=== PATIENT | male | born 1995 | race Caucasian/White ===

== ENCOUNTER 2016-06-20 21:11 | Emergency (ER) | payer OTHER ==
[2016-06-20 21:25] VITALS: BP 152/75
--- NOTE | 2016-06-20 21:35 | UC ---
Respiratory Complaint HPI - HPI Summary HPI Summary: The patient comes in today for: 1. Tightness of his chest with wheezing. Onset: 3.5 hours ago. Palliative/provocative: Cold air makes it better. Hot black coffee (caffeine) helps. Inhalers helps. Quality: Tightness. Region: Chest Severity: 4/10 Time: Comes and goes. Associated symptoms: FEvers: None. Dyspnea: "a little bit." Cough: Non-productive. Previous disease: "I've had this since I was a baby." Previous treatment: Ventolin helps, but the Proair does not help. He has been prescribed Flovent, but he has not used it as he has not had the money for it. When offered a DuoNeb treatment, he stated that he wanted to do this tonight. * - History of Current Complaint Chief Complaint: UCRespiratory Stated Complaint: ASTHMA Time Seen by Provider: 06/20/16 21:20 Hx Obtained From: Patient - Allergies/Home Medications Allergies/Adverse Reactions: Allergies Allergy/AdvReac Type Severity Reaction Status Date / Time environmental Allergy Difficulty Uncoded 06/20/16 21:25 Breathing PMH/Surg Hx/FS Hx/Imm Hx Endocrine History Of: Denies: Diabetes, Thyroid Disease, Hyperthyroidism, Hypothyroidism, Dyslipidemia Cardiovascular History Of: Denies: Cardiac Disorders, Hypertension, Pacemaker/ICD, Myocardial Infarction , Congestive Heart Failure, Atrial Fibrillation, Deep Vein Thrombosis, Bleeding Disorders Respiratory History Of: Reports: Asthma Denies: COPD, Bronchitis, Pneumonia, Pulmonary Embolism GI/ History Of: Denies: Gastroesophageal Reflux, Ulcer, Gastrointestinal Bleed, Gall Bladder Disease, Kidney Stones, Diverticulitis, Renal Disease, Urosepsis Neurological History Of: Denies: TIA, CVA, Dementia, Seizures, Migraine Psychological History Of: Denies: Anxiety, Depression, Bipolar Disorder, Schizophrenia, Post Traumatic Stress Disorder Cancer History Of: Denies: Lung Cancer, Colorectal Cancer, Breast Cancer, Prostate Cancer, Cervical Cancer Other History Of: Negative For: HIV, Hepatitis B, Hepatitis C - Surgical History Surgical History: Yes Surgery Procedure, Year, and Place: TOOTH EXTRACTION; ear tubes - Family History Known Family History: Positive: Respiratory Disease - Asthma. Negative: Cardiac Disease, Hypertension, Blood Disorder Family History: no known cardiac, pulmonary, disease. - Social History Occupation: Employed Full-time Alcohol Use: Occasionally Alcohol Amount: DRINKS A 12-PACK AT A TIME WEEKLY Substance Use Type: None Smoking Status (MU): Never Smoked Tobacco Type: Smokeless Tobacco Amount Used/How Often: 1/2 CAN day When Did the Patient Quit Smoking/Using Tobacco: 2014 Household Exposure Type: Cigarettes - Immunization History Most Recent Tetanus Shot: 3 YEARS AGO Review of Systems Constitutional: Negative Skin: Negative Eyes: Negative ENT: Negative Respiratory: Shortness Of Breath, Cough Cardiovascular: Negative Gastrointestinal: Negative Genitourinary: Negative All Other Systems Reviewed And Are Negative: Yes Physical Exam Triage Information Reviewed: Yes Appearance: Well-Appearing, No Pain Distress, Well-Nourished Vital Signs: Initial Vital Signs Temp 98.1 F 06/20/16 21:20 Pulse 105 06/20/16 21:20 Resp 16 06/20/16 21:20 BP 152/75 06/20/16 21:20 Pulse Ox 98 06/20/16 21:20 Vital Signs Reviewed: Yes Eyes: Positive: Conjunctiva Clear. Negative: Discharge ENT: Positive: Hearing grossly normal. Negative: Pharyngeal erythema, Nasal congestion, Nasal drainage, TM bulging, TM dull, TM red, Tonsillar swelling, Tonsillar exudate Dental: Negative: Gross Decay/Caries @, Dental Fracture @ Neck: Positive: Supple, Nontender, No Lymphadenopathy. Negative: Nuchal Rigidity Respiratory: Positive: Chest non-tender, Lungs clear, No respiratory distress, No accessory muscle use, Other: - Slight decreased in inspiration/expiration cycle?. Negative: Crackles, Wheezing Cardiovascular: Positive: RRR, No Murmur Abdomen Description: Positive: Nontender, No Organomegaly, Soft. Negative: Distended, Guarding Musculoskeletal: Positive: Strength Intact, ROM Intact Neurological: Positive: Alert, Muscle Tone Normal Psychological: Positive: Age Appropriate Behavior, Consolable Skin: Negative: rashes, breakdown UC Diagnostic Evaluation - Laboratory O2 Sat by Pulse Oximetry: 98 Respiratory Course/Dx - Course Course Of Treatment: Patient was given a DuoNeb aerosol treatment. He states that the nebulizer is helping him. - Differential Dx/Diagnosis Provider Diagnoses: asthma. Discharge - Discharge Plan Condition: Stable Disposition: HOME Patient Education Materials: Asthma (ED) Referrals: No Primary Care Phys,NOPCP [Primary Care Provider] - 3 Days (Please see your primary care provider this coming week to see how well you are doing. If you don't have a primary care provider, please contact the physician referral service. If you can't get in timely, please you may come back to see us until you can. If you get worse, please be seen sooner by us or the ER.) [facility] [place] [facility] [Outside]
[2016-06-20] MEDS ORDERED: Ipratropium 0.5MG/2.5ML NEB* 0.5 MG/2.5 ML NEB.SOLN INH ONE (21:38)
[2016-06-20] MEDS ORDERED: Albuterol 2.5 MG/3 ML NEB.SOL* (0.083%) INH ONE (21:38)
[2016-06-20] MEDS ORDERED: Albuterol HFA INHALER* 8 gm MDI INH ONE (21:56)
== END 2016-06-20 22:00 | disposition home or self-care (01) ==
LOC: UCEAST 21:11
DX: J45.909 Unspecified asthma, uncomplicated (principal); F17.220 Nicotine dependence, chewing tobacco, uncomplicated
CPT/HCPCS: 94640; 99212; A9270-GY; G0463; J7644

== ENCOUNTER 2016-08-08 15:54 | Emergency (ER) | payer SELFPAY ==
[2016-08-08 16:17] VITALS: BP 142/77
[2016-08-08] MEDS ORDERED: Ketorolac INJ* 60 MG/2 ML VIAL IM ONE (17:16)
[2016-08-08] MEDS ORDERED: HYDROcodone/ACETAMIN 5-325 MG* 1 TAB PO ONE (17:16)
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
== END 2016-08-08 19:24 | disposition home or self-care (01) ==
LOC: ED 15:54
DX: S20.219A Contusion of unspecified front wall of thorax, initial encounter (principal); S16.1XXA Strain of muscle, fascia and tendon at neck level, initial encounter; V49.49XA Driver injured in collision with other motor vehicles in traffic accident, initial encounter; Y92.9 Unspecified place or not applicable
CPT/HCPCS: 71020; 72125; 96372; 99281; J1885

== ENCOUNTER 2017-06-15 13:32 | Emergency (ER) | payer SELFPAY ==
[2017-06-15 14:53] LABS: ABS Basophils 0 10^3/ul (0-0.2); ABS Eosinophils 0.1 10^3/ul (0-0.6); ABS Lymphocytes 2.1 10^3/ul (1.0-4.8); ABS Monocytes 1.1 10^3/ul (0-0.8); ABS Neutrophils 8.4 10^3/ul (1.5-7.7); ABS Nucleated RBC 0 10^3/ul; Eosinophil % 0.7 % (0-6); Hematocrit 45 % (42-52); Hemoglobin 15.8 g/dl (14.0-18.0); Mean Corpuscular HGB Conc 36 g/dl (31-36); Mean Corpuscular Hemoglobin 30 pg (27-31); Mean Corpuscular Volume 85 fL (80-94); Mean Platelet Volume 8 um3 (7.4-10.4); Nucleated Red Blood Cells % 0; Platelet Count 257 10^3/ul (150-450); Red Blood Count 5.25 10^6/ul (4.0-5.4); Red Cell Distribution Width 13 % (10.5-15); White Blood Count 11.8 10^3/ul (3.5-10.8)
[2017-06-15 15:06] LABS: EGFR Non-African American 116.4 (>60)
[2017-06-15] MEDS ORDERED: Ondansetron INJ* 2 MG/ML VIAL IV ONE (16:28)
[2017-06-15] MEDS ORDERED: Morphine INJ* 4 MG/ML 1 ML CARPUJECT IV ONE (16:28)
[2017-06-15] MEDS ORDERED: NS 0.9% 1000 ML* 1,000 ML BOLUS SCH (16:30)
[2017-06-15 17:58] LABS: Urine Appearance Clear; Urine Blood Negative (Negative); Urine Color Yellow; Urine Ketones 1+ (Negative); Urine Protein Negative (Negative); Urine Urobilinogen Negative (Negative)
[2017-06-15] MEDS ORDERED: Iohexol 300* (CONTRAST) 10 ML SDV IV ONE (18:25)
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
--- NOTE | 2017-06-15 19:04 | RAD ---
INDICATION: Right lower quadrant abdominal pain. COMPARISON: There are no prior studies available for comparison. TECHNIQUE: A CT scan of the abdomen and pelvis was performed with intravenous and oral contrast following intravenous injection of 127 ml of Omnipaque 300 nonionic contrast. Contiguous axial sections were obtained from the lung bases through the symphysis pubis. Images were reconstructed in the coronal and sagittal planes. FINDINGS: The lung bases are clear. No pleural effusion is present. The liver is normal in size without significant focal abnormality. The liver is decreased in attenuation consistent with fatty infiltration. No calcified gallstones are seen. The spleen is mildly enlarged without focal abnormality. The pancreas appears to be within normal limits. The kidneys and adrenal glands are normal in size. No hydronephrosis is seen. No significant focal renal abnormality is seen. The aorta is normal in caliber and demonstrates homogeneous contrast opacification. No significant enlarged retroperitoneal lymph nodes are seen. There is circumferential thickening of the wall of the antrum of the stomach. The body and fundus of the stomach appeared within normal limits. This is a nonspecific finding likely secondary to gastritis less likely a mass. The small bowel colon appear nondistended. The appendix appears to be within normal limits. There is no evidence for colitis. No free intraperitoneal air or fluid is seen. No significant focal osseous abnormality is seen. IMPRESSION: 1. CIRCUMFERENTIAL THICKENING OF THE WALL OF THE ANTRUM OF THE STOMACH. THIS IS A NONSPECIFIC FINDING SUGGESTIVE OF GASTRITIS LESS LIKELY A MASS. 2. MILD SPLENOMEGALY. 3. HEPATIC STEATOSIS.
--- NOTE | 2017-06-15 19:25 | ED ---
I, Riley Saldaña, scribed for Channing Le MD on 06/15/17 at 1921 . Progress - Progress Note Progress Note: CT Abd/Pel reveals, per radiologist, IMPRESSION: 1. CIRCUMFERENTIAL THICKENING OF THE WALL OF THE ANTRUM OF THE STOMACH. THIS IS A NONSPECIFIC FINDING SUGGESTIVE OF GASTRITIS LESS LIKELY A MASS. 2. MILD SPLENOMEGALY. 3. HEPATIC STEATOSIS. ED physician has reviewed this radiology report. Re-Evaluation - Re-Evaluation First Eval Re-Evaluation Time: 19:16 Comment: Patient states pain is "iffy." There has been no vomiting or nausea, but he has had diarrhea. Patient states the pain originated near the chest, but has migrated to RLQ abdomen and has stayed there. Course/Dx - Course Course Of Treatment: Pt medications reviewed this visit. High blood pressure noted. In the ED course, the pt was given IV fluids, morphine, and zofran. Pt will be signed out to Dr. Le, pending disposition, awaiting CT abdomen/ pelvis. I reviewed the CAT scan results with patient and his family. Patient states that his pain is intermittent, and "so/so". Exam-ahn, he has a benign exam. Patient will be diagnosed with non-specific abdominal pain and dicharged home with pain medication and anti-nausea medication. The patient is agreeable with this plan. - Diagnoses Provider Diagnoses: Elevated BP without diagnosis of hypertension, Nonspecific abdominal pain The documentation as recorded by the Piotr lindquist Tecjoon accurately reflects the service I personally performed and the decisions made by me, Channing Le MD.
[2017-06-15 20:07] VITALS: BP 137/64
== END 2017-06-15 20:06 ==
LOC: ED 13:32
DX: R03.0 Elevated blood-pressure reading, without diagnosis of hypertension (principal); R10.9 Unspecified abdominal pain
CPT/HCPCS: 36415; 74177; 80053; 81003; 83605; 83690; 85025; 85652; 86140; 96374; 96375; 99282; J2270; J2405; Q9967

== ENCOUNTER 2017-07-29 20:47 | Emergency (ER) | payer SELFPAY ==
[2017-07-29 21:19] VITALS: BP 129/80
[2017-07-29] MEDS ORDERED: Ketorolac INJ* 60 MG/2 ML VIAL IM ONE (23:03)
[2017-07-29] MEDS ORDERED: Cyclobenzaprine TAB* 10 MG PO ONE (23:04)
--- NOTE | 2017-07-29 23:14 | UC ---
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 Pain is in midback and radiates up B/L up to scapular region. Denies previous injury to the back - History of Current Complaint Chief Complaint: UCBackPain Stated Complaint: BACK PAIN WC Time Seen by Provider: 07/29/17 22:37 Hx Obtained From: Patient Onset/Duration: Sudden Onset, Lasting Days Severity Initially: Severe Pain Intensity: 8 Character: Sharp, Spasmodic, Stiffness Aggravating Factor(s): Movement, Lifting, Bending, Walking Alleviating Factor(s): Nothing - Allergies/Home Medications Allergies/Adverse Reactions: Allergies Allergy/AdvReac Type Severity Reaction Status Date / Time environmental Allergy Difficulty Uncoded 07/29/17 21:20 Breathing PMH/Surg Hx/FS Hx/Imm Hx - Additional Past Medical History Additional PMH: none Other History Of: Negative For: HIV, Hepatitis B, Hepatitis C - Surgical History Surgical History: Yes Surgery Procedure, Year, and Place: TOOTH EXTRACTION; ear tubes - Family History Known Family History: Positive: Respiratory Disease - Asthma. Negative: Cardiac Disease, Hypertension, Blood Disorder Family History: no known cardiac, pulmonary, disease. - Social History Alcohol Use: Occasionally Alcohol Amount: DRINKS A 12-PACK AT A TIME WEEKLY Substance Use Type: None Smoking Status (MU): Current Every Day Smoker Type: Smokeless Tobacco Amount Used/How Often: 1/2 CAN day When Did the Patient Quit Smoking/Using Tobacco: 2014 Household Exposure Type: Cigarettes - Immunization History Most Recent Tetanus Shot: 3 YEARS AGO Review of Systems Constitutional: Negative Skin: Negative Eyes: Negative ENT: Negative Respiratory: Negative Cardiovascular: Negative Gastrointestinal: Negative Genitourinary: Negative Motor: Negative Neurovascular: Negative Musculoskeletal: Decreased ROM, Other: - SEE HPI Neurological: Negative Psychological: Negative All Other Systems Reviewed And Are Negative: Yes Physical Exam Triage Information Reviewed: Yes Appearance: Pain Distress Vital Signs: Initial Vital Signs Temp 37.2 C 07/29/17 21:17 Pulse 87 07/29/17 21:17 Resp 18 07/29/17 21:17 BP 129/80 07/29/17 21:17 Pulse Ox 98 07/29/17 21:17 Vital Signs Reviewed: Yes Eye Exam: Normal ENT Exam: Normal Dental Exam: Normal Neck exam: Normal Neck: Positive: 1 Respiratory Exam: Normal Cardiovascular Exam: Normal Abdominal Exam: Normal Musculoskeletal: Positive: Strength Limited @, ROM Limited @, Other: - TTP over thoracic paraspinal muscles with mild trigger points over the mid back region, NO vertebral tenderness noted Neurological Exam: Normal Psychological Exam: Normal Skin Exam: Normal Back Pain Course/Dx - Course Course Of Treatment: Pharmacy closed, Flexeril 10mg po x 1 now and Toradol 60mg IM x1 in UC. 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
== END 2017-07-29 23:25 | disposition home or self-care (01) ==
LOC: UCEAST 20:47
DX: M62.830 Muscle spasm of back (principal); F17.220 Nicotine dependence, chewing tobacco, uncomplicated
CPT/HCPCS: 99212; A9270-GY; G0463; J1885

== ENCOUNTER 2019-05-19 07:38 | Emergency (ER) | payer SELFPAY ==
[2019-05-19] MEDS ORDERED: Sulfamethox/Trimethoprim DS 800/160* TAB PO ONE (08:06)
--- NOTE | 2019-05-19 08:06 | ED ---
Skin Complaint - HPI Summary HPI Summary: The pt is a 23 yr old male presenting to [facility] c/o abscess on his left buttock beginning 2 days [employer]. He states that he attempted to pop the abscess with his thumbs 2 days ago and the next day it was much more red and painful. He notes that clear fluid was produced from the abscess when squeezed. He rates his current pain severity due to the abscess an 8/10. No aggravating or alleviating factors noted. He also denies any fever. - History of Current Complaint Chief Complaint: EDRashSkinAbscess Stated Complaint: ABCESS Hx Obtained From: Patient Onset/Duration: Started Days Ago, Still Present Skin Exposure Onset/Duration: Days Ago Timing: Constant, Lasting Days - 2 Onset Severity: Severe Current Severity: Severe Pain Intensity: 8 Skin Location: Other: - left buttocks Character: Painful Aggravating Symptom(s): Nothing Alleviating Symptom(s): Nothing Associated Signs & Symptoms: Negative - fever, Rash - Allergy/Home Medications Allergies/Adverse Reactions: Allergies Allergy/AdvReac Type Severity Reaction Status Date / Time environmental Allergy Difficulty Uncoded 05/19/19 07:47 Breathing PMH/Surg Hx/FS Hx/Imm Hx Endocrine/Hematology History: Denies: Hx Diabetes, Hx Thyroid Disease Cardiovascular History: Denies: Hx Congestive Heart Failure, Hx Deep Vein Thrombosis, Hx Hypertension , Hx Myocardial Infarction, Hx Pacemaker/ICD Respiratory History: Reports: Hx Asthma Denies: Hx Chronic Obstructive Pulmonary Disease (COPD), Hx Lung Cancer, Hx Pneumonia, Hx Pulmonary Embolism GI History: Denies: Hx Gall Bladder Disease, Hx Gastrointestinal Bleed, Hx Ulcer, Hx Urosepsis History: Denies: Hx Kidney Stones, Hx Renal Disease Neurological History: Denies: Hx Dementia, Hx Migraine, Hx Seizures, Hx Transient Ischemic Attacks (TIA) Psychiatric History: Denies: Hx Anxiety, Hx Depression, Hx Schizophrenia, Hx Bipolar Disorder - Surgical History Surgery Procedure, Year, and Place: TOOTH EXTRACTION; ear tubes Infectious Disease History: No Infectious Disease History: Denies: Hx Hepatitis, Hx Human Immunodeficiency Virus (HIV), History Other Infectious Disease, Traveled Outside the [place] in Last 30 Days - Family History Known Family History: Positive: Respiratory Disease - Asthma. Negative: Cardiac Disease, Hypertension, Blood Disorder Family History: no known cardiac, pulmonary, disease. - Social History Alcohol Use: Occasionally Alcohol Amount: DRINKS A 12-PACK AT A TIME WEEKLY Substance Use Type: Reports: None Smoking Status (MU): Current Every Day Smoker Type: Smokeless Tobacco Amount Used/How Often: 1/2 CAN day Review of Systems Negative: Fever Positive: Rash All Other Systems Reviewed And Are Negative: Yes Physical Exam - Summary Physical Exam Summary: Constitutional: Well-developed, Well-nourished, Alert. (-) Distressed Skin: Warm, Dry Left Buttock: Region of erythema approximately 5 to 6 cm in diameter, indurated , tender to palpation, no fluctuance, no discharge. HENT: Normocephalic; Atraumatic Eyes: Conjunctiva normal Neck: Musculoskeletal ROM normal neck. (-) JVD, (-) Stridor, (-) Tracheal deviation Cardio: Rhythm regular, rate normal, Heart sounds normal; Intact distal pulses; The pedal pulses are 2+ and symmetric. Radial pulses are 2+ and symmetric. (-) Murmur Pulmonary/Chest wall: Effort normal. (-) Respiratory distress, (-) Wheezes, (-) Rales Abd: Soft, (-) tenderness, (-) Distension, (-) Guarding, (-) Rebound Musculoskeletal: (-) Edema Lymph: (-) Cervical adenopathy Neuro: Alert, Oriented x3 Psych: Mood and affect Normal Triage Information Reviewed: Yes Vital Signs On Initial Exam: Initial Vitals Temp Pulse Resp BP Pulse Ox 99.2 F 118 16 152/84 98 05/19/19 07:42 05/19/19 07:42 05/19/19 07:42 05/19/19 07:42 05/19/19 07:42 Vital Signs Reviewed: Yes Procedures - Sedation Patient Received Moderate/Deep Sedation with Procedure: No Diagnostics - Vital Signs Vital Signs Temp Pulse Resp BP Pulse Ox 05/19/19 07:42 99.2 F 118 16 152/84 98 - Laboratory Lab Statement: Any lab studies that have been ordered have been reviewed, and results considered in the medical decision making process. Course/Dx - Course Course Of Treatment: The pt is a 23 yr old male presenting to [facility] c/o abscess on his left buttock beginning 2 days [employer]. He states that he attempted to pop the abscess with his thumbs 2 days ago and the next day it was much more red and painful. No imaging or test results to report. Final Dx are Abscess and cellulitis. Pt will be prescribed Bactrim and discharged home with PCP follow up within 3 days. Pt is agreeable with this plan. - Diagnoses Provider Diagnoses: Abscess, Cellulitis Discharge ED - Sign-Out/Discharge Documenting (check all that apply): Patient Departure - discharge - Discharge Plan Condition: Stable Disposition: HOME Prescriptions: Sulfamethox/Trimethoprim DS* [Bactrim DS 800/160 TAB*] 1 tab PO BID 7 Days #14 tab Patient Education Materials: Cellulitis (ED), Abscess (ED) Forms: *Work Release Referrals: [facility] [Outside] - 3 Days Additional Instructions: Please follow up with [facility] for a referral to a primary care physician. Please follow up with your primary care physician within 3-4 days. Please return to the ED for any new or worsening symptoms. - Billing Disposition and Condition Condition: STABLE Disposition: Home - Attestation Statements Document Initiated by Shreya: Yes Documenting Scribe: Lukas Mejia Provider For Whom Mendeze is Documenting (Include Credential): Alireza Myers DO Scribe Attestation: Lukas Cage, scribed for Alireza Myers DO on 05/19/19 at 1319. Scribe Documentation Reviewed: Yes Provider Attestation: The documentation as recorded by the Lukas lindquist accurately reflects the service I personally performed and the decisions made by Alireza cosby DO Status of Scrjoaquín Document: Viewed
[2019-05-19 08:25] VITALS: BP 139/75
== END 2019-05-19 08:20 | disposition home or self-care (01) ==
LOC: ED 07:38
DX: L02.31 Cutaneous abscess of buttock (principal); L03.317 Cellulitis of buttock; J45.909 Unspecified asthma, uncomplicated; F17.290 Nicotine dependence, other tobacco product, uncomplicated
CPT/HCPCS: 99282; A9270-GY

== ENCOUNTER 2019-08-10 07:19 | Emergency (ER) | payer SELFPAY ==
[2019-08-10 07:30] VITALS: BP 135/72
[2019-08-10 07:45] LABS: Influenza B Molecular POSITIVE (Negative)
[2019-08-10] MEDS ORDERED: Albuterol HFA INHALER* 8 gm MDI INH ONE (07:52)
--- NOTE | 2019-08-10 07:53 | UC ---
Respiratory Complaint HPI - HPI Summary HPI Summary: The patient is a 23-year-old male with a history of asthma who presents with a five-day history of fever, chills, cough, congestion ,myalgias, and wheezing. He has no nausea vomiting or diarrhea. - History of Current Complaint Chief Complaint: UCRespiratory Stated Complaint: FLU SYMPTOMS Time Seen by Provider: 08/10/19 07:33 Hx Obtained From: Patient Onset/Duration: Gradual Onset, Lasting Days Timing: Constant Severity Initially: Mild Severity Currently: Moderate Pain Intensity: 7 Pain Scale Used: 0-10 Numeric Character: Cough: Nonproductive Aggravating Factors: Nothing Alleviating Factors: Bronchodilator Associated Signs And Symptoms: Positive: Wheezing, Nasal Congestion, Hoarseness - Allergies/Home Medications Allergies/Adverse Reactions: Allergies Allergy/AdvReac Type Severity Reaction Status Date / Time environmental Allergy Difficulty Uncoded 08/10/19 07:30 Breathing Home Medications: Home Medications Cetirizine* [ZyrTEC 10 MG TAB*] 10 mg PO DAILY 10/10/12 [History Confirmed 08/10] Albuterol HFA INHALER* [Ventolin HFA Inhaler*] 2 puff INH Q4H PRN #1 mdi [Rx Confirmed 08/10/19] Albuterol 2.5MG/3ML (0.083%)* [Ventolin 2.5 MG/3 ML NEB.SOLEDAD*] 2.5 mg INH QID PRN #1 neb.soledad 08/10/19 [Rx] predniSONE 20 mg TAB [Deltasone 20 MG TAB*] 40 mg PO DAILY #8 tab 08/10/19 [Rx] PMH/Surg Hx/FS Hx/Imm Hx Previously Healthy: Yes Respiratory History: Asthma Other History Of: Negative For: HIV, Hepatitis B, Hepatitis C - Surgical History Surgical History: Yes Surgery Procedure, Year, and Place: TOOTH EXTRACTION; ear tubes - Family History Known Family History: Positive: Respiratory Disease - Asthma. Negative: Cardiac Disease, Hypertension, Blood Disorder Family History: no known cardiac, pulmonary, disease. - Social History Alcohol Use: Occasionally Alcohol Amount: DRINKS A 12-PACK AT A TIME WEEKLY Substance Use Type: None Substance Use Comment - Amount & Last Used: daily Smoking Status (MU): Light Every Day Tobacco Smoker Type: Cigarettes Amount Used/How Often: 5 sig /day When Did the Patient Quit Smoking/Using Tobacco: 2014 Household Exposure Type: Cigarettes - Immunization History Most Recent Tetanus Shot: 3 YEARS AGO Review of Systems All Other Systems Reviewed And Are Negative: Yes Constitutional: Positive: Fever, Chills, Fatigue Skin: Positive: Negative Eyes: Positive: Negative ENT: Positive: Nasal Discharge, Sinus Congestion, Sinus Pain/Tenderness Respiratory: Positive: Cough Cardiovascular: Positive: Negative Genitourinary: Positive: Negative Motor: Positive: Negative Neurovascular: Positive: Negative Musculoskeletal: Positive: Negative Neurological/Mental Status: Positive: Negative Psychological: Positive: Negative Physical Exam Triage Information Reviewed: Yes Appearance: Well-Appearing, No Pain Distress, Well-Nourished Vital Signs: Initial Vital Signs Temp 98.5 F 08/10/19 07:25 Pulse 100 08/10/19 07:25 Resp 16 08/10/19 07:25 BP 135/72 08/10/19 07:25 Pulse Ox 95 08/10/19 07:25 Vital Signs Reviewed: Yes Eyes: Positive: Conjunctiva Clear ENT: Positive: Hearing grossly normal. Negative: Pharyngeal erythema, Nasal congestion, Nasal drainage, Trismus, Muffled voice, Dental tenderness Neck: Positive: Supple, Nontender, No Lymphadenopathy Respiratory: Positive: Wheezing. Negative: No respiratory distress, No accessory muscle use Cardiovascular: Positive: RRR, No Murmur Musculoskeletal: Positive: ROM Intact, No Edema Neurological: Positive: Alert Psychological Exam: Normal Skin Exam: Normal Diagnostics - Laboratory Lab Results: influ B + Respiratory Course/Dx - Differential Dx/Diagnosis Provider Diagnosis: Influenza B, Bronchospasm Discharge ED - Sign-Out/Discharge Documenting (check all that apply): Patient Departure All imaging exams completed and their final reports reviewed: No Studies - Discharge Plan Condition: Stable Disposition: HOME Patient Education Materials: Bronchospasm (ED), Influenza (DC) Referrals: No Primary Care Phys,NOPCP [Primary Care Provider] - - Billing Disposition and Condition Condition: STABLE Disposition: Home
== END 2019-08-10 08:11 | disposition home or self-care (01) ==
LOC: UCEAST 07:19
DX: J45.909 Unspecified asthma, uncomplicated (principal); J10.1 Influenza due to other identified influenza virus with other respiratory manifestations; F17.210 Nicotine dependence, cigarettes, uncomplicated; Z91.09 Other allergy status, other than to drugs and biological substances
CPT/HCPCS: 99213; A9270-GY; G0463; J7512

== ENCOUNTER 2019-08-13 07:33 | Emergency (ER) | payer SELFPAY ==
--- NOTE | 2019-08-13 08:09 | UC ---
Respiratory Complaint HPI - HPI Summary HPI Summary: 23 yo male presents, accompanied by mother, with SOB. He tells me that he was here on 08/10 and diagnosed with the flu (his flu symptoms started 08/05). He has a history of poorly controlled asthma and was given an albuterol inhaler and 40mg prednisone to take daily. He also has an albuterol nebulizer at home that he has been using. He states his baseline is using his albuterol neb once a day , but over the past 3 days has needed it q4-6hours and he continues to feel SOB. Last neb treatment was this am at 0630. He has been taking tylenol alternating with ibuprofen for his body aches with good relief and has not had a fever since last week. He continues to smoke daily, but not over the last 2 days due to SOB. He denies sinus symptoms, sore throat, chest pain, abdominal pain, n/v. He was on advair in the past, but stopped this on his own a few years ago as he wanted to join the . He does not have a PCP or any follow up care. He has been hospitalized once at age 2 for his asthma - but has been to the ED/UCs many times for asthma exacerbations. - History of Current Complaint Chief Complaint: UCRespiratory Stated Complaint: SHORT OF BREATH, COUGH Time Seen by Provider: 08/13/19 07:54 Hx Obtained From: Patient, Family/Wrist Closer Onset/Duration: Gradual Onset Severity Initially: Moderate Severity Currently: Moderate Pain Intensity: 8 Pain Scale Used: 0-10 Numeric - Allergies/Home Medications Allergies/Adverse Reactions: Allergies Allergy/AdvReac Type Severity Reaction Status Date / Time environmental Allergy Difficulty Uncoded 08/13/19 07:48 Breathing Home Medications: Home Medications Cetirizine* [ZyrTEC 10 MG TAB*] 10 mg PO DAILY 10/10/12 [History Confirmed 08/13] Albuterol HFA INHALER* [Ventolin HFA Inhaler*] 2 puff INH Q4H PRN #1 mdi [Rx Confirmed 08/13/19] Albuterol 2.5MG/3ML (0.083%)* [Ventolin 2.5 MG/3 ML NEB.SOLEDAD*] 2.5 mg INH QID PRN #1 neb.soledad 08/10/19 [Rx Confirmed 08/13/19] predniSONE 20 mg TAB [Deltasone 20 MG TAB*] 40 mg PO DAILY #8 tab 08/10/19 [Rx Confirmed 08/13/19] Albuterol HFA INHALER* [Ventolin HFA Inhaler*] 1 - 2 puff INH Q4H PRN #1 mdi [Rx] Amoxicillin/Clavulanate TAB* [Augmentin TAB 875*] 2 tab PO BID 7 Days #28 tab [Rx] Azithromycin TAB* [Zithromax TAB (Z-DAYTON) 250 mg #6 tabs] 2 tab PO .TODAY, THEN 1 DAILY #1 [place] 08/13/19 [Rx] predniSONE 50 mg TAB [Deltasone 50 mg TAB] 50 mg PO DAILY #2 tab 08/13/19 [Rx] PMH/Surg Hx/FS Hx/Imm Hx Respiratory History: Asthma Other History Of: Negative For: HIV, Hepatitis B, Hepatitis C - Surgical History Surgical History: Yes Surgery Procedure, Year, and Place: TOOTH EXTRACTION; ear tubes - Family History Known Family History: Positive: Respiratory Disease - Asthma. Negative: Cardiac Disease, Hypertension, Blood Disorder Family History: no known cardiac, pulmonary, disease. - Social History Alcohol Use: Occasionally Alcohol Amount: DRINKS A 12-PACK AT A TIME WEEKLY Substance Use Type: None Substance Use Comment - Amount & Last Used: daily Smoking Status (MU): Light Every Day Tobacco Smoker Type: Cigarettes Amount Used/How Often: 5 sig /day When Did the Patient Quit Smoking/Using Tobacco: 2015 Household Exposure Type: Cigarettes - Immunization History Most Recent Tetanus Shot: 3 YEARS AGO Review of Systems All Other Systems Reviewed And Are Negative: No Constitutional: Positive: Fatigue Skin: Positive: Negative Eyes: Positive: Negative ENT: Positive: Negative Respiratory: Positive: Shortness Of Breath, Cough Cardiovascular: Positive: Negative Gastrointestinal: Positive: Negative Genitourinary: Positive: Negative Motor: Positive: Negative Neurovascular: Positive: Negative Neurological/Mental Status: Positive: Negative Psychological: Positive: Negative Physical Exam - Summary Physical Exam Summary: GENERAL: NAD. Mild pale appearing. SKIN: No rashes, sores, lesions, or open wounds. HEENT: Head: AT/NC Eyes: Conjunctiva clear without inflammation or discharge. Ears: Hearing grossly normal. TMs intact, no bulging, erythema, or edema. Nose: Nasal mucosa pink and moist. NTTP maxillary and frontal sinus. Throat: Posterior oropharynx without exudates, erythema, or tonsillar enlargement. Uvula midline. NECK: Supple. Nontender. No lymphadenopathy. CHEST: Mild wheezing throughout. No r/r. No accessory muscle use. Breathing comfortably and in no distress. CV: RRR. Pulses intact. Cap refill <2seconds NEURO: Alert. PSYCH: Age appropriate behavior. Triage Information Reviewed: Yes Vital Signs: Initial Vital Signs Temp 99.9 F 08/13/19 07:41 Pulse 105 08/13/19 07:41 Resp 20 08/13/19 07:41 BP 116/73 08/13/19 07:41 Pulse Ox 93 08/13/19 07:41 Vital Signs Reviewed: Yes Diagnostics - Radiology CXR Radiology Interpretation Completed By: Radiologist Summary of Radiographic Findings: IMPRESSION: POSSIBLE PNEUMONIA VERSUS SUBPLEURAL ATELECTASIS IDENTIFIED ON THE LATERAL VIEW RADIOGRAPH ONLY. Re-Evaluation - Re-Evaluation First Eval Re-Evaluation Time: 09:28 Change: Improved Comment: Mild improvement s/p duoneb. Easier to take deep breath. O2% 96% on RA. He was ambulated and sat remained 95-96%, but his HR increased to mid 120s. Respiratory Course/Dx - Course Course Of Treatment: CXR as above. He was given a duoneb treatment in the clinic with mild relief. He was ambulated and felt increased SOB with elevated HR, but O2% remained 95-96 %. I am concerned given his continued smoking and likely bacterial PNA complicated by influenza and poorly controlled asthma. He does not have any follow measures in place and has no PCP. He does live with his and mother. I discussed going to the ED for possible admission for his likely PNA complicated by flu and uncontrolled asthma. He did not want to go to the ED today and is asking to be treated as an outpatient with the strict understanding that his condition could worsen - at which point he will need to go to the ED. His mother with him voiced understanding and agrees with the plan. Will refill his albuterol inhaler and place him on Augmentin and Zpak. Will extend his 5 day prednisone 40mg to a total of 7days with 50mg prednisone. Again, strongly advised to go to the ED if his condition worsens or if he develops new symptoms. - Differential Dx/Diagnosis Provider Diagnosis: Pneumonia, Asthma exacerbation, Influenza Discharge ED - Sign-Out/Discharge Documenting (check all that apply): Patient Departure All imaging exams completed and their final reports reviewed: Yes - Discharge Plan Condition: Fair Disposition: HOME Prescriptions: Albuterol HFA INHALER* [Ventolin HFA Inhaler*] 1 - 2 puff INH Q4H PRN #1 mdi PRN Reason: Sob/Wheezing Amoxicillin/Clavulanate TAB* [Augmentin TAB 875*] 2 tab PO BID 7 Days #28 tab Azithromycin TAB* [Zithromax TAB (Z-DAYTON) 250 mg #6 tabs] 2 tab PO .TODAY, THEN 1 DAILY #1 dayton predniSONE 50 mg TAB [Deltasone 50 mg TAB] 50 mg PO DAILY #2 tab Patient Education Materials: Asthma (ED), Pneumonia (ED) Forms: *Work Release Referrals: No Primary Care Phys,NOPCP [Primary Care Provider] - [facility] [place] [facility]ERR[facility] [Outside] - As Soon As Possible Additional Instructions: As discussed, you have several risk factors that indicate your condition could worsen. You have elected to try outpatient therapy, with the understanding that if your condition worsens (such as shortness of breath, fever, chest pain, or new symptoms) you need to go to the ED immediately. Please take the antibiotics as prescribed and continue using your albuterol inhaler, nebulizer, and prednisone as prescribed. - Billing Disposition and Condition Condition: FAIR Disposition: Home
[2019-08-13] MEDS ORDERED: Albuterol/Ipratropium NEB.SOL* Albuterol 2.5 MG/Ipratropium 0.5 MG 3 ML INH ONE (08:22)
[2019-08-13 09:09] VITALS: BP 114/87
== END 2019-08-13 09:30 | disposition home or self-care (01) ==
LOC: UCEAST 07:33
DX: J45.901 Unspecified asthma with (acute) exacerbation (principal); J11.00 Influenza due to unidentified influenza virus with unspecified type of pneumonia; F17.210 Nicotine dependence, cigarettes, uncomplicated; Z79.899 Other long term (current) drug therapy; Z91.09 Other allergy status, other than to drugs and biological substances
CPT/HCPCS: 71046; 99212; A9270-GY; G0463

== ENCOUNTER 2019-09-12 20:56 | Emergency (ER) | payer SELFPAY ==
--- NOTE | 2019-09-12 21:10 | UC ---
Respiratory Complaint HPI - HPI Summary HPI Summary: used his neb and inhaler up until today a few hrs ago. Asthma exacerbation; states that on Tuesday furniture was being moved in to his house when dust and pollen were stirred up and feels that his asthma has gotten worse; denies any fever or aches; will need refill of albuterol inhaler and neb solution denies any travel; no concern for COVID. mom and were helping him. neither of them have travelled either. Of note he was using his albuterol Q2hrs. better:when he leaves the house his symptoms improve, black coffee and his albuterol helps. worse:when he's inside the house with dust recent travel:no recent visits from anyone who has travelled:no works:[employer] and no coworkers have tested positive. HE did have pneumonia a month ago which has resolved. - History of Current Complaint Chief Complaint: UCRespiratory Stated Complaint: ASTHMA Time Seen by Provider: 09/12/19 21:09 Hx Obtained From: Patient Aggravating Factors: Allergens Alleviating Factors: Bronchodilator, Spontaneous Resolution - when he leaves the house - Allergies/Home Medications Allergies/Adverse Reactions: Allergies Allergy/AdvReac Type Severity Reaction Status Date / Time environmental Allergy Difficulty Uncoded 09/12/19 20:59 Breathing Home Medications: Home Medications Cetirizine* [ZyrTEC 10 MG TAB*] 10 mg PO DAILY 10/10/12 [History Confirmed 08/13] Albuterol 2.5MG/3ML (0.083%)* [Ventolin 2.5 MG/3 ML NEB.SOLEDAD*] 2.5 mg INH QID PRN #1 neb.soledad 08/10/19 [Rx Confirmed 08/13/19] Albuterol HFA INHALER* [Ventolin HFA Inhaler*] 1 - 2 puff INH Q4H PRN #1 mdi [Rx] Albuterol 2.5MG/3ML (0.083%)* [Ventolin 2.5 MG/3 ML NEB.SOLEDAD*] 2.5 mg INH Q6H PRN #1 josette 09/12/19 [Rx] predniSONE [Prednisone 20 MG TAB] 20 mg PO DAILY 4 Days #4 tablet 09/12/19 [Rx] PMH/Surg Hx/FS Hx/Imm Hx Previously Healthy: Yes Respiratory History: Asthma Other History Of: Negative For: HIV, Hepatitis B, Hepatitis C - Surgical History Surgical History: Yes Surgery Procedure, Year, and Place: TOOTH EXTRACTION; ear tubes - Family History Known Family History: Positive: Respiratory Disease - Asthma. Negative: Cardiac Disease, Hypertension, Blood Disorder Family History: no known cardiac, pulmonary, disease. - Social History Alcohol Use: Occasionally Alcohol Amount: DRINKS A 12-PACK AT A TIME WEEKLY Substance Use Type: None Substance Use Comment - Amount & Last Used: daily Smoking Status (MU): Light Every Day Tobacco Smoker Type: Cigarettes Amount Used/How Often: 5 sig /day When Did the Patient Quit Smoking/Using Tobacco: 2014 Household Exposure Type: Cigarettes - Immunization History Most Recent Tetanus Shot: 3 YEARS AGO Review of Systems All Other Systems Reviewed And Are Negative: Yes Constitutional: Negative: Fever, Chills, Fatigue Skin: Negative: Rash Respiratory: Positive: Shortness Of Breath, Cough, Other - wheezing Neurological/Mental Status: Negative: Headache, Weakness Physical Exam Triage Information Reviewed: Yes Appearance: Well-Appearing Vital Signs Reviewed: Yes Respiratory: Positive: No respiratory distress, Wheezing - throughout. Negative : Crackles, Rhonchi, Stridor Cardiovascular Exam: Normal Neurological: Positive: Alert. Negative: Fatigued Skin: Negative: Rashes Respiratory Course/Dx - Course Course Of Treatment: Bronchospasming after moving furniture and being around dust. O2 good. Exam did demonstrate wheezing in all queen. Plan is to give 5 days of steroid w/ inhaler use. Offered COVID testing as I feel that all the population should be tested even if afebrile, he declined. If not improving he should go to ED. Provider worse mask, glasses, gloves. Discharge ED - Sign-Out/Discharge Documenting (check all that apply): Patient Departure All imaging exams completed and their final reports reviewed: No Studies - Discharge Plan Condition: Stable Disposition: HOME Prescriptions: Albuterol 2.5MG/3ML (0.083%)* [Ventolin 2.5 MG/3 ML NEB.SOLEDAD*] 2.5 mg INH Q6H PRN #1 josette PRN Reason: cough predniSONE [Prednisone 20 MG TAB] 20 mg PO DAILY 4 Days #4 tablet Patient Education Materials: Bronchospasm (ED) Referrals: No Primary Care Phys,NOPCP [Primary Care Provider] - Additional Instructions: Please go to the emergency room if not improving within 24-48hrs. - Billing Disposition and Condition Condition: STABLE Disposition: Home
[2019-09-12 21:12] VITALS: BP 146/86
[2019-09-12] MEDS ORDERED: Albuterol HFA INHALER* 8 gm MDI INH ONE (21:20)
== END 2019-09-12 22:00 | disposition home or self-care (01) ==
LOC: UCEAST 20:56
DX: J45.909 Unspecified asthma, uncomplicated (principal); Z79.51 Long term (current) use of inhaled steroids; F17.210 Nicotine dependence, cigarettes, uncomplicated
CPT/HCPCS: 99212; A9270-GY; G0463; J7512

== ENCOUNTER 2020-09-07 13:40 | Inpatient (IN) ==
[2020-09-07 14:08] LABS: ABS Eosinophils 0.1 10^3/ul (0-0.6); ABS Lymphocytes 1.9 10^3/ul (1.0-4.8); ABS Monocytes 0.5 10^3/ul (0-0.8); ABS Neutrophils 3.8 10^3/ul (1.5-7.7); Eosinophil % 1.7 %; Hematocrit 43 % (42-52); Hemoglobin 14.7 g/dL (14.0-18.0); Lymphocyte % 30.1 %; Mean Corpuscular HGB Conc 34 g/dL (31-36); Mean Corpuscular Hemoglobin 29 pg (27-31); Mean Corpuscular Volume 86 fL (80-94); Mean Platelet Volume 7.5 fL (7.4-10.4); Nucleated Red Blood Cells % 0.1; Platelet Count 250 10^3/uL (150-450); Red Blood Count 5.01 10^6 /uL (4.18-5.48); Red Cell Distribution Width 13 % (10-15); White Blood Count 6.5 10^3/uL (3.5-10.8)
[2020-09-07 14:23] LABS: ALT 32 U/L (7-52); AST 16 U/L (13-39); Albumin 4.4 g/dL (3.2-5.2); Albumin/Globulin Ratio 1.7 (1-3); Alkaline Phosphatase 68 U/L (34-104); Anion Gap 7 mmol/L (2-11); Blood Urea Nitrogen 13 mg/dL (6-24); CO2 Carbon Dioxide 22 mmol/L (22-32); Calcium 9.2 mg/dL (8.6-10.3); Chloride 109 mmol/L (101-111); EGFR African American 139.4 (>60); EGFR Non-African American 115.2 (>60); Globulin 2.6 g/dL (2-4); Glucose 100 mg/dL (70-100); Potassium 3.9 mmol/L (3.5-5.0); Sodium 138 mmol/L (135-145)
[2020-09-07 14:32] LABS: Alcohol, S < 10 mg/dL (<10); Salicylate < 2.50 mg/dL (<30)
[2020-09-07 15:12] LABS: Acetaminophen < 15 mcg/mL
[2020-09-07] MEDS ORDERED: Al Hydrox/Mg Hydrox/Simet LIQ 30 ML UDC PO PRN (19:02)
[2020-09-07] MEDS: Nicotine GUM 2MG FRUIT FLAVOR PO PRN (21:31)
[2020-09-07] MEDS ORDERED: Albuterol HFA INHALER 8 gm MDI INH PRN (22:35)
[2020-09-07] MEDS: Nicotine PATCH 14 MG/24 HR PATCH TRANSDERM SCH (22:36)
[2020-09-08] MEDS: Nicotine GUM 2MG FRUIT FLAVOR PO PRN ×4 (07:44→20:17)
[2020-09-08] MEDS: Vitamin THERAPEUTIC TAB PO SCH (07:45)
[2020-09-08] MEDS: Nicotine PATCH 14 MG/24 HR PATCH TRANSDERM SCH (07:45)
[2020-09-08] MEDS ORDERED: Albuterol 2.5mg/3 ml (0.083%) NEB.SOLN INH PRN (10:29)
[2020-09-08] MEDS ORDERED: Albuterol HFA INHALER 8 gm MDI INH PRN (10:33)
[2020-09-08] MEDS: Olodaterol Inhaler MDI INH SCH (11:01)
[2020-09-08 18:59] LABS: TSH Ultra Thyroid Stim Horm 0.61 mcIU/mL (0.34-5.60)
[2020-09-09 08:28] VITALS: BP 130/72
[2020-09-09 09:13] LABS: Urine Appearance Clear; Urine Bilirubin Negative (Negative); Urine Blood 1+ (Negative); Urine Color Yellow; Urine Glucose Negative (Negative); Urine Ketones 2+ (Negative); Urine Nitrite Negative (Negative); Urine Protein 1+(30 mg/dL) (Negative); Urine Specific Gravity 1.031 (1.010-1.030); Urine Urobilinogen Negative (Negative)
[2020-09-09 09:28] LABS: Urine Bacteria Absent (Absent); Urine Red Blood Cell Trace(0-2/hpf) (Absent); Urine White Blood Cell Trace(0-5/hpf) (Absent)
[2020-09-09 09:32] LABS: Urine Benzodiazepine Screen None Detected (None Detect); Urine Cannabinoids Screen Presumptive Positive (None Detect); Urine Opiates Screen None Detected (None Detect)
[2020-09-09] MEDS: Vitamin THERAPEUTIC TAB PO SCH (09:34)
[2020-09-09] MEDS: Nicotine PATCH 14 MG/24 HR PATCH TRANSDERM SCH (09:34)
[2020-09-09] MEDS: Olodaterol Inhaler MDI INH SCH (09:35)
== END 2020-09-09 12:58 | disposition home or self-care (01) | DRG 880 ==
LOC: ED 13:40 → BSU 18:14
PROVIDERS: ADMIT Psychiatry & Neurology Addiction Psychiatry; ATTEND Psychiatry & Neurology Psychiatry

== ENCOUNTER 2022-11-24 12:33 | Inpatient (IN) ==
[2022-11-24 13:38] LABS: ABS Basophils 0.1 10^3/uL (0.0-0.1); ABS Eosinophils 0.1 10^3/uL (0.0-0.5); ABS Lymphocytes 2.2 10^3/uL (1.0-4.8); ABS Monocytes 0.7 10^3/uL (0.0-1.1); ABS Nucleated RBC 0.02 10^3/ul; Eosinophil % 0.9 %; Mean Corpuscular Hemoglobin 29.5 pg (27-33); Mean Corpuscular Hgb Conc 34.8 g/dL (31-36); Mean Corpuscular Volume 84.7 fL (80-97); Mean Platelet Volume 7.3 fL (7.5-11.2); Nucleated Red Blood Cells % 0.2 /100 WBC (0.0-0.4); Platelet Count 299 10^3/uL (150-450); Red Blood Count 5.44 10^6/uL (4.06-5.63); White Blood Count 11.1 10^3/uL (3.6-10.2)
[2022-11-24 13:41] LABS: Urine Appearance Clear; Urine Bilirubin Negative (Negative); Urine Blood Negative (Negative); Urine Color Yellow; Urine Glucose Negative (Negative); Urine Ketones Negative (Negative); Urine Nitrite Negative (Negative); Urine Protein Negative (Negative); Urine Specific Gravity 1.018 (1.002-1.030); Urine Urobilinogen Negative (Negative)
[2022-11-24 14:04] LABS: Alcohol, S < 13 mg/dL (<13); Salicylate < 2.50 mg/dL (<30)
[2022-11-24 14:06] LABS: ALT 53 U/L (7-52); AST 18 U/L (13-39); Albumin 4.5 g/dL (3.2-5.2); Albumin/Globulin Ratio 1.7 (1-3); Alkaline Phosphatase 80 U/L (35-149); Anion Gap 7 mmol/L (2-16); Blood Urea Nitrogen 8 mg/dL (6-24); CO2 Carbon Dioxide 26 mmol/L (22-32); Calcium 9.5 mg/dL (8.6-10.3); Chloride 105 mmol/L (101-111); Creatinine, Serum 0.75 mg/dL (0.67-1.17); Globulin 2.7 g/dL (2-4); Glucose 128 mg/dL (70-100); Potassium 3.7 mmol/L (3.5-5.0); Sodium 138 mmol/L (135-145); Total Protein 7.2 g/dL (6.4-8.9); eGFR CKD-EPI 126.1 (>60)
[2022-11-24 14:18] LABS: TSH Ultra Thyroid Stim Horm 1.19 mcIU/mL (0.34-5.60)
[2022-11-24 14:20] LABS: Urine Benzodiazepine Screen None Detected (None Detect); Urine Buprenorphine Screen None Detected (None Detect); Urine Cannabinoids Screen Presumptive Positive (None Detect); Urine Fentanyl Screen None Detected (None Detect); Urine Hydrocodone Screen None Detected (None Detect); Urine Opiates Screen None Detected (None Detect)
[2022-11-24 14:30] LABS: Acetaminophen < 15 mcg/mL
[2022-11-24] MEDS ORDERED: Al Hydrox/Mg Hydrox/Simet LIQ 30 ML UDC PO PRN (15:04)
[2022-11-24] MEDS ORDERED: Albuterol HFA INHALER 8 gm MDI INH PRN (15:05)
[2022-11-24] MEDS ORDERED: Albuterol 2.5mg/3 ml (0.083%) NEB.SOLN INH PRN (15:05)
[2022-11-25] MEDS: Mometasone/Formoter 200/5 MDI INH SCH ×2 (10:42→18:18)
[2022-11-25] MEDS ORDERED: Nicotine GUM 4MG FRUIT FLAVOR PO ONE (17:38)
[2022-11-25] MEDS ORDERED: Nicotine PATCH 21 MG/24 HR PATCH ONE (17:40)
[2022-11-26] MEDS: Mometasone/Formoter 200/5 MDI INH SCH ×2 (07:36→19:08)
[2022-11-26] MEDS: Nicotine GUM 4MG FRUIT FLAVOR PO PRN ×4 (08:52→21:05)
[2022-11-26] MEDS: Nicotine PATCH 21 MG/24 HR PATCH TRANSDERM SCH (08:58)
[2022-11-27] MEDS: Mometasone/Formoter 200/5 MDI INH SCH ×2 (08:49→20:14)
[2022-11-27] MEDS: Nicotine GUM 4MG FRUIT FLAVOR PO PRN ×5 (08:49→21:06)
[2022-11-27] MEDS: Nicotine PATCH 21 MG/24 HR PATCH TRANSDERM SCH (08:57)
[2022-11-28] MEDS: Mometasone/Formoter 200/5 MDI INH SCH ×2 (07:29→21:00)
[2022-11-28] MEDS: Nicotine GUM 4MG FRUIT FLAVOR PO PRN ×5 (07:29→21:02)
[2022-11-28 07:43] VITALS: BP 115/71
[2022-11-28] MEDS: Nicotine PATCH 21 MG/24 HR PATCH TRANSDERM SCH (09:42)
[2022-11-29] MEDS: Mometasone/Formoter 200/5 MDI INH SCH (08:51)
[2022-11-29] MEDS: Nicotine GUM 4MG FRUIT FLAVOR PO PRN ×2 (08:51→12:42)
[2022-11-29] MEDS: Nicotine PATCH 21 MG/24 HR PATCH TRANSDERM SCH (08:51)
== END 2022-11-29 15:47 | disposition home or self-care (01) | DRG 755 ==
LOC: ED 12:33 → EDHOLD 15:04 → ED 16:28 → BSU 16:38
PROVIDERS: ADMIT Psychiatry & Neurology Psychiatry; ATTEND Psychiatry & Neurology Psychiatry